=== PATIENT | female | born 1970 ===

== ENCOUNTER → 2020-10-07 | Outpatient (CLI) | payer OTHER | END | disposition home or self-care (01) | LOC: Rad HDHVI 10:57 | PROVIDERS: ATTEND Internal Medicine Cardiovascular Disease | DX: I50.30 Unspecified diastolic (congestive) heart failure (principal); R00.2 Palpitations | CPT/HCPCS: 93306 ==

== ENCOUNTER → 2020-10-21 | Outpatient (CLI) | payer OTHER ==
[~2020-10-21] VITALS: Ht 156.2 cm; Wt 77.1 kg
== END | disposition home or self-care (01) ==
LOC: Rad HDHVI 09:12
PROVIDERS: ATTEND Internal Medicine Cardiovascular Disease
DX: I10 Essential (primary) hypertension (principal); I08.0 Rheumatic disorders of both mitral and aortic valves; E78.5 Hyperlipidemia, unspecified; R07.89 Other chest pain; R06.02 Shortness of breath; R00.2 Palpitations; Z82.49 Family history of ischemic heart disease and other diseases of the circulatory system
CPT/HCPCS: 78452; 93017; 96374; A9500

== ENCOUNTER 2024-12-25 08:37 | Outpatient (CLI) | payer OTHER ==
[2024-12-25 08:50] VITALS: BP 155/75; PULSE 70; RESP 16; O2SAT 99
[2024-12-25] MEDS ORDERED: IOHEXOL 350 MG/ML 100ML IJ ONE (08:54)
[2024-12-25 09:20] VITALS: BP 160/73; PULSE 79; RESP 16; O2SAT 99
--- NOTE | 2024-12-25 12:39 | DVH ---
Procedure: CT CHEST WITH CONTRAST Reason for study/Clinical History: SOB Comparison Study: None Exam Date: 12/25/2024 08:54 AM Radiation Dose Information: CT Dose: CTDI volume is 7.87 mGy. Dose-length product is 295.04 mGy*cm Contrast: Type of contrast: Omnipaque Contrast inject: 100 mL TECHNIQUE: After the uneventful administration of intravenous contrast intravenously, CT imaging was performed through the chest. Coronal and sagittal reformations were performed by the technologist. FINDINGS: Lower Neck: Visualized portions of the thyroid gland are unremarkable. Aorta and Vasculature: Normal caliber of thoracic aorta. Lymph Nodes: No enlarged intrathoracic lymph nodes. Small bilateral axillary lymph nodes. Mediastinum: Heart size is normal. There is no pericardial effusion. The esophagus is unremarkable. Lungs: Linear atelectasis or scarring in the right lower lung zone. The left lung is clear. Musculoskeletal: No acute osseous abnormality. Upper abdomen: 1-2 cm cyst or hemangioma in the right lobe of the liver inferiorly IMPRESSION: 1. No evidence of acute intrathoracic abnormality identified. 2. There is some linear atelectasis or scarring in the right lower lobe. All CT scans at this medical facility are performed using dose modulation techniques as appropriate t o a performed exam including the following: Automated exposure control was utilized; adjustment of th e MA and/or KV according to patient size; and use of iterative reconstruction technique.
== END 2024-12-25 17:00 | disposition home or self-care (01) ==
LOC: Rad HDHVI 08:37
PROVIDERS: ATTEND Internal Medicine Cardiovascular Disease
DX: R59.0 Localized enlarged lymph nodes (principal); R06.02 Shortness of breath
CPT/HCPCS: 71260; G0463; Q9967

== ENCOUNTER 2025-01-01 08:54 | Outpatient (CLI) | payer OTHER ==
[~2025-01-01] VITALS: Ht 156.2 cm; Wt 78.9 kg
== END 2025-01-01 17:00 | disposition home or self-care (01) ==
LOC: Rad HDHVI 08:54
PROVIDERS: ATTEND Internal Medicine Cardiovascular Disease
DX: I08.8 Other rheumatic multiple valve diseases (principal); R07.89 Other chest pain; R94.39 Abnormal result of other cardiovascular function study; I11.9 Hypertensive heart disease without heart failure; E78.00 Pure hypercholesterolemia, unspecified; J45.909 Unspecified asthma, uncomplicated; Z82.49 Family history of ischemic heart disease and other diseases of the circulatory system
CPT/HCPCS: 78452; 93017; A9500; 96374

== ENCOUNTER 2025-01-08 08:57 | Outpatient (CLI) | payer OTHER ==
--- NOTE | 2025-01-09 12:17 | DVHSR ---
APPROVED REPORT EXAM: Two-dimensional and M-mode echocardiogram with Doppler and color Doppler. DIMENSIONS LVDd4.2 (3.8-5.7cm)LA (2D)4.2 (1.9-4.0cm)Aortic Root2.7 (2.0-3.7cm) LVDs2.8 (2.5-4.0cm)LA (MM) (1.9-4.0cm)Aortic Cusp Exc2.0 (1.5-2.0cm) EF (%) 61.7 (55-70%)Rt. Atrium3.6 (1.9-4.0cm)Asc. Aorta cm IVSd1.1 (0.7-1.1cm)RV (D)2.9 (1.8-2.4cm) PWd1.2 (0.7-1.1cm) Mitral Valve MitralMitral Stenosis E wave0.92m/sMV Mean GR.mmHg A wave1.17m/sMV Peak GR.47mmHg E/A ratio0.82D MVAcm2 DECEL [id number] 1/2 [place] Aortic Valve Aortic ValveAortic Stenosis V10.92m/Rebel Mean GR.3mmHg V21.24m/Rebel Peak GR.6mmHg Pulmonic Valve V20.97m/s Tricuspid Valve TR Velocity2.26m/s [id number] LEFT VENTRICLE The Ejection Fraction is >55%. ATRIA The left atrium is mildly dilated. The right atrium size is normal. MITRAL VALVE The mitral valve is normal in structure and function. Mitral regurgitation is trace to mild. PULMONIC VALVE The pulmonic valve is not well visualized. TRICUSPID VALVE The tricuspid valve is grossly normal. There is trace tricuspid regurgitation. AORTIC VALVE The aortic valve opens well. No aortic regurgitation is present. GREAT VESSELS The aortic root is normal size. PERICARDIAL EFFUSION There is no pericardial effusion. Conclusion EF 55% MILD TR MILD MR
== END 2025-01-08 17:00 | disposition home or self-care (01) ==
LOC: Rad HDHVI 08:57
PROVIDERS: ATTEND Internal Medicine Cardiovascular Disease
DX: I34.0 Nonrheumatic mitral (valve) insufficiency (principal); R07.9 Chest pain, unspecified
CPT/HCPCS: 93306